=== PATIENT | female | born 1960 | race Caucasian/White ===

== ENCOUNTER 2020-07-14 07:30 | Outpatient (CLI) | payer BC ==
[~2020-07-14 07:30] MED LIST: ALPH300C PO; ATOR10TA9 PO; BUTA1CAP59 PO; CALC-10 PO; CARI350T PO; CHOL100011 PO; DULO60CA56 PO; HYDR-3245 PO; LEVO100T PO; MULT-53 PO; PT WILL BRING LIST
== END 2020-07-14 23:59 | disposition home or self-care (01) ==
LOC: CVU 07:30
PROVIDERS: ATTEND Nurse Practitioner Family
DX: G62.9 Polyneuropathy, unspecified (principal)
CPT/HCPCS: 93922